=== PATIENT | female | born 1995 | race Caucasian/White ===

== ENCOUNTER 2021-11-09 15:22 | Emergency (ER) | payer OTHER ==
[~2021-11-09] VITALS: Ht 152.4 cm; Wt 58.1 kg
[2021-11-09] MEDS ORDERED: SYNTHROID75 MCG PO (15:42)
== END 2021-11-09 20:30 | disposition home or self-care (01) ==
LOC: ER 15:22
DX: O21.8 Other vomiting complicating pregnancy (principal); Z3A.01 Less than 8 weeks gestation of pregnancy

== ENCOUNTER 2022-01-24 10:09 | Outpatient (CLI) | payer OTHER ==
[~2022-01-24 10:09] MED LIST: SYNTHROID75 MCG PO
== END 2022-01-24 11:10 | disposition home or self-care (01) ==
LOC: PRENATAL 10:09
PROVIDERS: ATTEND Obstetrics & Gynecology Maternal & Fetal Medicine
DX: O35.0XX0 Maternal care for (suspected) central nervous system malformation in fetus, not applicable or unspecified (principal); O99.282 Endocrine, nutritional and metabolic diseases complicating pregnancy, second trimester; Z3A.17 17 weeks gestation of pregnancy

== ENCOUNTER 2022-02-22 10:06 | Outpatient (CLI) | payer OTHER | END 2022-02-22 11:45 | disposition home or self-care (01) | LOC: PRENATAL 10:06 | PROVIDERS: ATTEND Obstetrics & Gynecology Maternal & Fetal Medicine | DX: O35.0XX0 Maternal care for (suspected) central nervous system malformation in fetus, not applicable or unspecified (principal); O35.3XX0 Maternal care for (suspected) damage to fetus from viral disease in mother, not applicable or unspecified; O99.280 Endocrine, nutritional and metabolic diseases complicating pregnancy, unspecified trimester; Z3A.21 21 weeks gestation of pregnancy ==

== ENCOUNTER 2022-06-01 15:25 | Outpatient (CLI) | payer OTHER | END 2022-06-01 15:57 | disposition home or self-care (01) | LOC: PRENATAL 15:25 | PROVIDERS: ATTEND Obstetrics & Gynecology Maternal & Fetal Medicine | DX: O26.849 Uterine size-date discrepancy, unspecified trimester (principal); O36.8199 Decreased fetal movements, unspecified trimester, other fetus; O99.280 Endocrine, nutritional and metabolic diseases complicating pregnancy, unspecified trimester; Z3A.35 35 weeks gestation of pregnancy ==

== ENCOUNTER 2022-06-15 13:45 | Inpatient (IN) | payer OTHER ==
[~2022-06-15] VITALS: Ht 152.4 cm; Wt 68.0 kg
[2022-06-27] MEDS ORDERED: PRENATAL + DHA1 EAC1 (09:28)
[2022-06-28] MEDS ORDERED: PROGESTERONE200 MG (11:23)
[2022-06-28] MEDS ORDERED: SYNTHROID125 MCG (11:24)
[2022-06-29] MEDS ORDERED: FUSION PLUS CA1 EACH PO (08:34)
== END 2022-06-29 14:23 | disposition home or self-care (01) | DRG 807 ==
LOC: LDR 06-27 05:52 → OB/GYN 06-27 19:05
PROVIDERS: ADMIT Obstetrics & Gynecology; ATTEND Obstetrics & Gynecology
PROC: 10E0XZZ Delivery of Products of Conception, External Approach (ICD-10-PCS; principal; 2022-06-27)
PROC: 0KQM0ZZ Repair Perineum Muscle, Open Approach (ICD-10-PCS; 2022-06-27)
PROC: 4A1HXCZ Monitoring of Products of Conception, Cardiac Rate, External Approach (ICD-10-PCS; 2022-06-27)
DX: O70.1 Second degree perineal laceration during delivery (principal); Z37.0 Single live birth; Z3A.39 39 weeks gestation of pregnancy; Z20.822 Contact with and (suspected) exposure to COVID-19; Z91.09 Other allergy status, other than to drugs and biological substances